=== PATIENT | female | born 1940 | race Hispanic/Latino ===

== ENCOUNTER 2017-12-17 17:51 | Emergency (ER) | payer MEDICARE, BC ==
[2017-12-17 17:52] VITALS: BMI 34.0
--- NOTE | 2017-12-17 18:40 | ED PDOC ---
Arrival/HPI - General Time Seen by Provider: 12/17/17 18:19 Historian: Patient - History of Present Illness Narrative History of Present Illness (Text): 12/17/17 18:35 A 77 year old female presents to the emergency department accompanied by for evaluation after mechanical fall prior to arrival. Patient reports while at home she tripped on a throw rug and fell forward onto her knees, left wrist and hit the left side of her forehead. Patient denies any other injuries, loss of consciousness, headache, dizziness, neck pain, back pain, nausea, vomiting, abdominal pain, chest pain, shortness of breath or any other complaints. Time/Duration: Prior to Arrival Context: Home, Tripped Past Medical History - Provider Review Nursing Documentation Reviewed: Yes - Cardiac Hx Cardiac Disorders: Yes Hx Hypertension: Yes - Pulmonary Hx Respiratory Disorders: No - Neurological Hx Neurological Disorder: No - HEENT Hx HEENT Disorder: No - Renal Hx Renal Disorder: No - Endocrine/Metabolic Hx Endocrine Disorders: Yes Hx Hypothyroidism: Yes - Hematological/Oncological Hx Blood Disorders: No - Integumentary Hx Dermatological Disorder: No - Musculoskeletal/Rheumatological Hx Musculoskeletal Disorders: No Hx Arthritis: No - Gastrointestinal Hx Gastrointestinal Disorders: No - Genitourinary/Gynecological Hx Genitourinary Disorders: No - Psychiatric Hx Psychophysiologic Disorder: No Hx Depression: No Hx Emotional Abuse: No Hx Physical Abuse: No Hx Substance Use: No - Surgical History Hx Appendectomy: Yes Hx Hysterectomy: Yes - Suicidal Assessment Feels Threatened In Home Enviroment: No Family/Social History - Physician Review Nursing Documentation Reviewed: Yes Family/Social History: No Known Family HX Smoking Status: Never Smoked Hx Alcohol Use: No Hx Substance Use: No Hx Substance Use Treatment: No Allergies/Home Meds Allergies/Adverse Reactions: Allergies tetanus and diphtheria toxoids [tetanus & diphtheria toxoids] Allergy (Verified 05/09/16 08:05) RASH Home Medications: Home Meds Medication Instructions Recorded Confirmed Atorvastatin Calcium [Lipitor] 20 mg PO DAILY 05/06/12 05/09/16 Levothyroxine [Synthroid] 1 tab PO DAILY 05/09/16 05/09/16 Nitrofurantoin Macrocrystals 100 mg PO BID 05/09/16 05/09/16 [Macrobid] Valsartan/Hydrochlorothiazide 1 tab PO DAILY 05/09/16 05/09/16 [Valsartan-Hctz 160-12.5 mg Tab] Review of Systems - Physician Review All systems were reviewed & negative as marked: Yes - Review of Systems Respiratory: absent: SOB Cardiovascular: absent: Chest Pain Gastrointestinal: absent: Abdominal Pain, Nausea, Vomiting Musculoskeletal: Other (bilateral knee pain, left wrist pain). absent: Back Pain, Neck Pain Skin: Other (abrasions to left forehead) Neurological: absent: Headache, Dizziness Physical Exam Vital Signs Temp Pulse Resp BP Pulse Ox 12/17/17 19:04 97.8 F 60 18 108/82 99 Appearance: Positive for: Well-Appearing, Non-Toxic, Comfortable Pain Distress: None Mental Status: Positive for: Alert and Oriented X 3 - Systems Exam Head: Present: Tenderness (to left side of face), Abrasion (multiple abrasion to left side of face) Pupils: Present: PERRL Extroacular Muscles: Present: EOMI Conjunctiva: Present: Normal Mouth: Present: Moist Mucous Membranes Neck: Present: Normal Range of Motion. No: MIDLINE TENDERNESS, Paraspinal Tenderness Respiratory/Chest: Present: Clear to Auscultation, Good Air Exchange. No: Respiratory Distress, Accessory Muscle Use Cardiovascular: Present: Regular Rate and Rhythm, Normal S1, S2. No: Murmurs Abdomen: Present: Normal Bowel Sounds. No: Tenderness, Distention, Peritoneal Signs Back: Present: Normal Inspection. No: Midline Tenderness, Paraspinal Tenderness Upper Extremity: Present: NORMAL PULSES, Tenderness (to left wrist), Neurovascularly Intact. No: Cyanosis, Edema, Normal ROM (Limited ROM to left wrist secondary to pain), Swelling, Erythema, Temperature Abnormalties Lower Extremity: Present: NORMAL PULSES, Normal ROM, Tenderness (to bilateral knees), Neurovascularly Intact. No: Edema, CALF TENDERNESS, Swelling, Temperature Abnormalties Neurological: Present: GCS=15, CN II-XII Intact, Speech Normal, Motor Func Grossly Intact, Normal Sensory Function, Normal Cerebellar Funct, Gait Normal Skin: Present: Warm, Dry, Normal Color. No: Rashes Psychiatric: Present: Alert, Oriented x 3, Normal Insight, Normal Concentration Medical Decision Making ED Course and Treatment: 12/17/17 18:35 Impression: A 77 year old female with left facial, left wrist, and bilateral knee pain after mechanical fall Differential Diagnosis included but are not limited to: Rule out fractures Plan: -- -- Tylenol -- Reassess and disposition Progress Notes: Patient refused to have a tetanus shot. She reports she experienced an allergic reaction to the vaccine when she was younger. Report Date: 12/17/17 21:13 EXAM: CT Head Without Intravenous Contrast Dictated and Authenticated by: Umu Herr MD IMPRESSION: No CT evidence of acute intracranial abnormality. Report Date: 12/17/17 21:17 EXAM: CT Maxillofacial Without Intravenous Contrast Dictated and Authenticated by: Umu Herr MD IMPRESSION: No acute fracture visualized. 12/17/17 21:45 Knee xray read and interpreted by me, show no acute fractures. Wrist xray read and interpreted by me, oblique view area of articular surface contains slight irregularity. On examination there is no tenderness over that area, no palpable tenderness over the snuffbox or tenderness with axial loading of the thumb. I have discussed the results and plan with the patient, who expresses understanding. Patient in agreement with plan to be discharged home. Patient is stable for discharge. Patient was instructed to follow up with orthopedist or return if symptoms worsen or new concerning symptoms arise. - RAD Interpretation Radiology Orders: 12/17/17 18:31 HEAD W/O CONTRAST [CT] Stat MAXILLOFACIAL W/O CONTRAST [CT] Stat KNEES BILATERAL [RAD] Stat WRIST, LEFT 3 VIEWS [RAD] Stat - Medication Orders Current Medication Orders: Discontinued Medications Acetaminophen (Tylenol 325mg Tab) 975 mg PO STAT STA Stop: 12/17/17 18:56 Last Admin: 12/17/17 19:21 Dose: 975 mg MAR Pain/Vitals Document 12/17/17 19:21 MS (Rec: 12/17/17 19:22 [place] [facility] [id number] Pain Reassessment Is This A Pain ReAssessment? No Sleep Is patient sleeping during reassessment? No Presence of Pain Presence of Pain Yes Pain Scale Used Pain Scale Used Numeric Location Pain Location Body Drug Safety Coordinator Description Constant Intensity 7 Scale Used Numeric - Scribe Statement The provider has reviewed the documentation as recorded by the Scribe Mena Yadav Provider Scribe Attestation: All medical record entries made by the Scribe were at my direction and personally dictated by me. I have reviewed the chart and agree that the record accurately reflects my personal performance of the history, physical exam, medical decision making, and the department course for this patient. I have also personally directed, reviewed, and agree with the discharge instructions and disposition. Disposition/Present on Arrival - Present on Arrival Any Indicators Present on Arrival: No History of DVT/PE: No History of Uncontrolled Diabetes: No Urinary Catheter: No History Surgical Site Infection Following: None - Disposition Have Diagnosis and Disposition been Completed?: Yes Diagnosis: Left wrist sprain, Fall, Facial contusion Disposition: HOME/ ROUTINE Disposition Time: 21:53 Patient Plan: Discharge Condition: GOOD Discharge Instructions (ExitCare): [place], Contusion (DC), Wrist Sprain (DC) Additional Instructions: Mrs Otero- Sorreinaldo this happened to you tonight. Return to us if any problems. Follow up with orthopedics regarding your wrist. Tylenol or motrin ok for pain. Ice packs for swelling. Best- Dr. Juan Cruz Referrals: Andi Barahona MD [Staff Provider] - Follow up with primary
[2017-12-17 19:05] VITALS: O2SAT 99
--- NOTE | 2017-12-17 21:13 | CT ---
EXAM: CT Head Without Intravenous Contrast CLINICAL HISTORY: 77 years old, female; Injury or trauma; Fall; Initial encounter; Blunt trauma (contusions or hematomas); Consciousness not specified TECHNIQUE: Axial computed tomography images of the head/brain without intravenous contrast. All CT scans at this facility use one or more dose reduction techniques, viz.: automated exposure control; ma/kV adjustment per patient size (including targeted exams where dose is matched to indication; i.e. head); or iterative reconstruction technique. Coronal and sagittal reformatted images were created and reviewed. COMPARISON: No relevant prior studies available. FINDINGS: Brain: No hemorrhage. No significant white matter disease. No edema. Ventricles: No hydrocephalus. Bones: Skull is intact. Sinuses: Mild maxillary sinus disease. No acute sinusitis. Mastoid air cells: No mastoid effusion. IMPRESSION: No CT evidence of acute intracranial abnormality.
--- NOTE | 2017-12-17 21:17 | CT ---
EXAM: CT Maxillofacial Without Intravenous Contrast CLINICAL HISTORY: 77 years old, female; Injury or trauma; Fall; Initial encounter; Blunt trauma (contusions or hematomas); Cheek bone and forehead and nose and maxilla; Bilateral; Additional info: Fall, zygomatic arch fracture on l? TECHNIQUE: Axial computed tomography images of the face without intravenous contrast. All CT scans at this facility use one or more dose reduction techniques, viz.: automated exposure control; ma/kV adjustment per patient size (including targeted exams where dose is matched to indication; i.e. head); or iterative reconstruction technique. Coronal and sagittal reformatted images were created and reviewed. COMPARISON: No relevant prior studies available. FINDINGS: Bones/joints: No acute fracture. Soft tissues: No significant abnormality appreciated on CT. Correlate clinically. Orbits: No acute abnormality as visualized. Sinuses: Mild maxillary sinus mucosal thickening. No air-fluid levels. IMPRESSION: No acute fracture visualized.
[2017-12-17 23:55] VITALS: BP 108/88; PULSE 70; RESP 16; TEMP 97
--- NOTE | 2017-12-18 08:26 | RAD ---
PROCEDURE: Bilateral Knee Radiographs. HISTORY: Fall COMPARISON: None. FINDINGS: BONES: Right Knee: No acute fracture. Proliferative hypertrophic changes emanating from the femoral condyle and tibial plateau regions. Left Knee: No acute fracture. Proliferative hypertrophic changes emanating from the femoral condyle and tibial plateau regions. JOINTS: Right Knee: Degenerative changes primarily affecting medial compartment and patellofemoral joint. Left knee: Degenerative changes primarily affecting medial compartment SOFT TISSUES: Right Knee: Soft tissue swelling adjacent to the medial femoral condyles region. Left Knee: Medial soft tissue swelling JOINT EFFUSION: Right Knee: None. Left Knee: None. OTHER FINDINGS: None. IMPRESSION: Soft tissue swelling without acute articular or osseous abnormality.
--- NOTE | 2017-12-18 08:27 | RAD ---
PROCEDURE: Left Wrist Radiographs. HISTORY: Fall COMPARISON: None. FINDINGS: BONES: Normal. No fracture. JOINTS: Osteoarthritic changes incompletely visualized SOFT TISSUES: Normal. OTHER FINDINGS: None. IMPRESSION: No acute findings related to/accounting for the clinical presentation. Additional benign and/or incidental findings described above.
== END 2017-12-17 21:50 | disposition home or self-care (01) ==
LOC: ED 17:51
DX: S63.502A Unspecified sprain of left wrist, initial encounter (principal); S00.83XA Contusion of other part of head, initial encounter; W01.0XXA Fall on same level from slipping, tripping and stumbling without subsequent striking against object, initial encounter; Y92.009 Unspecified place in unspecified non-institutional (private) residence as the place of occurrence of the external cause; I10 Essential (primary) hypertension; E03.9 Hypothyroidism, unspecified

== ENCOUNTER 2018-11-10 09:14 | Emergency (ER) | payer MEDICARE, BC ==
--- NOTE | 2018-11-10 09:35 | ED PDOC ---
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 anterior leg and lt. 1st great toe injury x 2 days. Pt. stated that she scraped her leg against a plastic pill bottle and injured the lt. foot 1st digit toe, no head/neck/back injury, no numbness or tingling, no head/neck/back/chest/abdomen injury, no night sweat, no other medical or psychological complaints. Past Medical History - Provider Review Nursing Documentation Reviewed: Yes - Cardiac Hx Cardiac Disorders: Yes Hx Hypertension: Yes - Pulmonary Hx Respiratory Disorders: No - Neurological Hx Neurological Disorder: No - HEENT Hx HEENT Disorder: No - Renal Hx Renal Disorder: No - Endocrine/Metabolic Hx Endocrine Disorders: Yes Hx Hypothyroidism: Yes - Hematological/Oncological Hx Blood Disorders: No - Integumentary Hx Dermatological Disorder: No - Musculoskeletal/Rheumatological Hx Musculoskeletal Disorders: No Hx Arthritis: No - Gastrointestinal Hx Gastrointestinal Disorders: No - Genitourinary/Gynecological Hx Genitourinary Disorders: No - Psychiatric Hx Psychophysiologic Disorder: No Hx Depression: No Hx Emotional Abuse: No Hx Physical Abuse: No Hx Substance Use: No - Surgical History Hx Appendectomy: Yes Hx Hysterectomy: Yes - Suicidal Assessment Feels Threatened In Home Enviroment: No Family/Social History - Physician Review Nursing Documentation Reviewed: Yes Family/Social History: Unknown Family HX Smoking Status: Never Smoked Hx Alcohol Use: No Hx Substance Use: No Hx Substance Use Treatment: No Allergies/Home Meds Allergies/Adverse Reactions: Allergies tetanus and diphtheria toxoids [tetanus & diphtheria toxoids] Allergy (Verified 05/09/16 08:05) RASH Home Medications: Home Meds Medication Instructions Recorded Confirmed Atorvastatin Calcium [Lipitor] 20 mg PO DAILY 05/06/12 05/09/16 Levothyroxine [Synthroid] 1 tab PO DAILY 05/09/16 05/09/16 Nitrofurantoin Macrocrystals 100 mg PO BID 05/09/16 05/09/16 [Macrobid] Valsartan/Hydrochlorothiazide 1 tab PO DAILY 05/09/16 05/09/16 [Valsartan-Hctz 160-12.5 mg Tab] Review of Systems - Review of Systems Constitutional: absent: Fatigue, Fevers Eyes: absent: Vision Changes ENT: absent: Hearing Changes Respiratory: absent: SOB, Cough, Sputum Cardiovascular: absent: Chest Pain Gastrointestinal: absent: Abdominal Pain, Nausea, Vomiting Musculoskeletal: Arthralgias. absent: Back Pain, Neck Pain, Joint Swelling, Myalgias Skin: absent: Rash, Pruritis, Skin Lesions, Laceration, Abscess, Ulcer, Cellulitis, Other (abrasion) Neurological: absent: Headache Psychiatric: absent: Anxiety, Depression, Suicidal Ideation Physical Exam Vital Signs Reviewed: Yes Temperature: Afebrile Blood Pressure: Normal Pulse: Regular Respiratory Rate: Normal Appearance: Positive for: Well-Appearing, Non-Toxic, Comfortable Pain Distress: Mild Mental Status: Positive for: Alert and Oriented X 3 - Systems Exam Head: Present: Atraumatic, Normocephalic Pupils: Present: PERRL Extroacular Muscles: Present: EOMI Conjunctiva: Present: Normal Mouth: Present: Moist Mucous Membranes Nose (External): Present: Atraumatic. No: Abrasion, Contusion, Laceration, Lesions, Other Nose (Internal): Present: Normal Inspection, No Active Bleeding. No: Rhinorrhea, Septal Hematoma, Epistaxis Neck: Present: Normal Range of Motion Respiratory/Chest: Present: Clear to Auscultation, Good Air Exchange. No: Respiratory Distress, Accessory Muscle Use Cardiovascular: Present: Regular Rate and Rhythm, Normal S1, S2. No: Murmurs Abdomen: No: Tenderness, Distention, Peritoneal Signs, Rebound, Guarding Back: Present: Normal Inspection. No: CVA Tenderness, Midline Tenderness, Paraspinal Tenderness, Pain with Leg Raise, Decubitus Ulcer Upper Extremity: Present: Normal Inspection. No: Cyanosis, Edema Lower Extremity: Present: Normal Inspection, Other (LLE: visible triangular abrasion approx. 3cm in total length with no laceration gap, mild hematoma surrounding, +ttp on the 1st digit toe with no swelling and no skin injury with no nail injury, no signs of compartment syndrome, FROM without limitation, sensation intact, motor 5/5, +DPPT pulses, capillary refill< 2 seconds, neurovascular intact. ). No: Edema Neurological: Present: GCS=15, CN II-XII Intact, Speech Normal Skin: Present: Warm, Dry, Normal Color. No: Rashes Psychiatric: Present: Alert, Oriented x 3, Normal Insight, Normal Concentration Medical Decision Making ED Course and Treatment: 11/10/18 09:40 -Xrays -wound irrigate with saline, clean with betadine, bacitracin/gauze/edvin wrap/cane -I explained to the patient that for her injury that she should receive tetanus update but the patient declined as she had anaphylatic reaction in the past, stated that she had skin abrasion/laceration in the past 50 years which she never had tetanus shot, risks and benefits explained but the patient still declined tetanus. I will refer her to infectious disease 11/10/18 10:59 -Lt. tibia/fibula xray: ER wet read: no fracture or dislocation, mild swelling to anterior mid tibial region. -Lt. foot 1st digit toe xray: ER wet read: no fracture or dislocation, +DJD noted. -Pt. feels much better, advised to follow up with the pmd/podiatry/ID -Discharge home with tylenol, bacitracin oinment, follow up with your own pmd and ID/[employer] food & cooking/orthopedic within 2 days, return to the er for any new or worsening signs or symptoms. - RAD Interpretation Radiology Orders: -Lt. tibia/fibula xray: Date of service: 11/10/2018 PROCEDURE: Radiographs of the left tibia and fibula. HISTORY: fall, pain COMPARISON: None available. TECHNIQUE: Frontal and lateral views obtained. FINDINGS: BONES: No fracture or destructive lesion. JOINT SPACES: Unremarkable. OTHER FINDINGS: None. IMPRESSION: Unremarkable radiographs of the left tibia and fibula. ----- -Lt. foot 1st digit toe xray: Date of service: 11/10/2018 PROCEDURE: Left Foot and great toe radiographs. HISTORY: lt. great toe injury from tripping COMPARISON: None. FINDINGS: BONES: Normal. No fracture. JOINTS: Normal. SOFT TISSUES: Normal. OTHER FINDINGS: None. IMPRESSION: No evidence of fracture School Principal: Radiologist - PA / [employer] / Resident Statement / has reviewed & agrees with the documentation as recorded. Disposition/Present on Arrival - Present on Arrival Any Indicators Present on Arrival: No History of DVT/PE: No History of Uncontrolled Diabetes: No Urinary Catheter: No History of Decub. Ulcer: No History Surgical Site Infection Following: None - Disposition Have Diagnosis and Disposition been Completed?: Yes Diagnosis: Abrasion, Contusion Disposition: HOME/ ROUTINE Disposition Time: 09:41 Patient Plan: Discharge Patient Problems: Current Active Problems Problem Status Onset Abrasion Acute Contusion Acute Condition: IMPROVED Additional Instructions: -Discharge home with tylenol, bacitracin oinment, follow up with your own pmd and ID/svp digital sales food & cooking/orthopedic within 2 days, return to the er for any new or worsening signs or symptoms. Prescriptions: Acetaminophen [Tylenol] 2 cap PO QID PRN #30 capsule PRN Reason: Other Bacitracin Ointment [Bacitracin] 1 appful TOP BID #15 g Referrals: Avelino Dougherty MD [Primary Care Provider] - Follow up with primary Tr Mae DPM [Staff Provider] - Follow up with primary Devan Terrell MD [Staff Provider] - Follow up with primary Kaden Green DO [Staff Provider] - Follow up with primary Forms: WORK NOTE
[2018-11-10 09:36] VITALS: BMI 32.9
[2018-11-10] MEDS ORDERED: Bacitracin 500 Units/gm Oint Foilpak UD TOP ONE (09:42)
--- NOTE | 2018-11-10 11:08 | RAD ---
Date of service: 11/10/2018 PROCEDURE: Radiographs of the left tibia and fibula. HISTORY: fall, pain COMPARISON: None available. TECHNIQUE: Frontal and lateral views obtained. FINDINGS: BONES: No fracture or destructive lesion. JOINT SPACES: Unremarkable. OTHER FINDINGS: None. IMPRESSION: Unremarkable radiographs of the left tibia and fibula.
--- NOTE | 2018-11-10 11:10 | RAD ---
Date of service: 11/10/2018 PROCEDURE: Left Foot and great toe radiographs. HISTORY: lt. great toe injury from tripping COMPARISON: None. FINDINGS: BONES: Normal. No fracture. JOINTS: Normal. SOFT TISSUES: Normal. OTHER FINDINGS: None. IMPRESSION: No evidence of fracture
[2018-11-10 11:11] VITALS: BP 115/72; PULSE 80; RESP 16; TEMP 97.7; O2SAT 100
== END 2018-11-10 11:21 | disposition home or self-care (01) ==
LOC: ED 09:14
DX: S80.812A Abrasion, left lower leg, initial encounter (principal); S90.112A Contusion of left great toe without damage to nail, initial encounter; W22.8XXA Striking against or struck by other objects, initial encounter

== ENCOUNTER 2018-12-03 16:43 | Inpatient (IN) | payer MEDICARE, BC ==
--- NOTE | 2018-12-03 17:03 | ED PDOC ---
Arrival/HPI - General Chief Complaint: Palpitations Time Seen by Provider: 12/03/18 16:47 Historian: Patient - History of Present Illness Narrative History of Present Illness (Text): 12/03/18 17:01 A 78 year old female, whose past medical history includes bronchitis, on CPAP, hyperthyroid, low thyroid, hyperlipidemia, hypertension, and a functional heart murmur, presents to the emergency department complaining of shortness of breath since 3 days ago. Patient reports associated intermittent headache but reports no current pain. Patient notes she called her primary care doctor with her symptoms and was advised to come to the ER for an evaluation. Patient states her shortness of breath increases as her anxiety increases. Patient notes she had seen her certified orthoptist 3 weeks ago to try to lower the pressure on her CPAP. Pat ngoc denies any sick contact, fever, chills, or any other complaints. PMD: Dr. Dougherty Time/Duration: < week (3 days) Symptom Onset: Gradual Symptom Course: Unchanged Activities at Onset: Light Context: Home Past Medical History - Provider Review Nursing Documentation Reviewed: Yes - Infectious Disease Hx of Infectious Diseases: None - Cardiac Hx Cardiac Disorders: Yes Hx Hypertension: Yes - Pulmonary Hx Respiratory Disorders: No - Neurological Hx Neurological Disorder: No - HEENT Hx HEENT Disorder: No - Renal Hx Renal Disorder: No - Endocrine/Metabolic Hx Endocrine Disorders: Yes Hx Hypothyroidism: Yes - Hematological/Oncological Hx Blood Disorders: No - Integumentary Hx Dermatological Disorder: No - Musculoskeletal/Rheumatological Hx Musculoskeletal Disorders: No Hx Arthritis: No - Gastrointestinal Hx Gastrointestinal Disorders: No - Genitourinary/Gynecological Hx Genitourinary Disorders: No - Psychiatric Hx Psychophysiologic Disorder: No Hx Depression: No Hx Emotional Abuse: No Hx Physical Abuse: No Hx Substance Use: No - Surgical History Hx Appendectomy: Yes Hx Hysterectomy: Yes - Anesthesia Hx Anesthesia: Yes Hx Anesthesia Reactions: No Hx Malignant Hyperthermia: No - Suicidal Assessment Feels Threatened In Home Enviroment: No Family/Social History - Physician Review Nursing Documentation Reviewed: Yes Family/Social History: No Known Family HX Smoking Status: Never Smoked Hx Alcohol Use: No Hx Substance Use: No Hx Substance Use Treatment: No Allergies/Home Meds Allergies/Adverse Reactions: Allergies bicalutamide [From Casodex] Allergy (Verified 12/03/18 16:49) RASH butenafine [From Mentax] Allergy (Verified 12/03/18 16:49) RASH tetanus and diphtheria toxoids [tetanus & diphtheria toxoids] Allergy (Verified 12/03/18 16:47) RASH Home Medications: Home Meds Medication Instructions Recorded Confirmed Atorvastatin Calcium [Lipitor] 20 mg PO DAILY 05/06/12 05/09/16 Levothyroxine [Synthroid] 1 tab PO DAILY 05/09/16 05/09/16 Nitrofurantoin Macrocrystals 100 mg PO BID 05/09/16 05/09/16 [Macrobid] Valsartan/Hydrochlorothiazide 1 tab PO DAILY 05/09/16 05/09/16 [Valsartan-Hctz 160-12.5 mg Tab] Review of Systems - Physician Review All systems were reviewed & negative as marked: Yes - Review of Systems Constitutional: absent: Fevers, Other (chills) Respiratory: SOB Neurological: Headache Physical Exam - Physical Exam Narrative Physical Exam (Text): 12/03/18 17:02 Gen: VS reviewed, alert, well developed, well nourished, nontoxic, mild distress. ENT: normal pharynx. Eye: EOMI, PERRL. Neck: no JVD, supple, no adenopathy. CV: irregularly irregular rhythm, no rubs, no murmur, no gallops, S1, S2, pulses equal and strong. Pulm: no distress, clear to auscultation, no wheeze, no rhonchi, breath sounds equal, no rales. Abd: soft, nontender, no guarding, no rebound, no rigidity, normal bowel sounds. Ext: no edema. Skin: good color, no rash, no cyanosis. Psych: responds appropriately to questions, normal affect. Neuro: oriented x 3, CN2-12 intact grossly, motor intact, sensation intact. Vital Signs Reviewed: Yes Vital Signs Temp Pulse Resp BP Pulse Ox 12/03/18 16:59 97.8 F 12/03/18 16:53 107 H 18 136/104 H 99 12/03/18 16:51 101 H 18 157/57 H 98 Temperature: Afebrile Blood Pressure: Hypertensive Pulse: Tachycardic Respiratory Rate: Normal Mental Status: Positive for: Alert and Oriented X 3 Medical Decision Making ED Course and Treatment: 03/15/19 17:03 Impression: 78 year old female presenting to the emergency room complaining of shortness of breath. Plan: -- EKG -- TSH -- Heparin -- Reassess and disposition Prior Visits: Notes and results from previous visits were reviewed. Progress Notes: 12/03/18 18:13 patient seen for dyspnea on exertion, found to have new onset atrial fibrillation, [id number] score = 4, has bled score =1, there are no identifiable contraindications to anticoagulation. will start heparin 12/03/18 18:[address] rausch to tele, patient to be admitted for new onset afib, anticoagulation, cardiology consult - RAD Interpretation Radiology Orders: 12/03/18 16:51 CHEST PORTABLE [RAD] Stat - EKG Interpretation EKG Interpretation (Text): 12/03/18 1652: atrial fibrillation at 100 bpm, nml qrs, nml axis, no acute sttw abn Interpreted by ED Physician: Yes - Scribe Statement The provider has reviewed the documentation as recorded by the Uziel Lange All medical record entries made by the Mirtaibbarry were at my direction and personal ly dictated by me. I have reviewed the chart and agree that the record accurately reflects my personal performance of the history, physical exam, medical decision making, and the department course for this patient. I have also personally directed, reviewed, and agree with the discharge instructions and disposition. Disposition/Present on Arrival - Present on Arrival Any Indicators Present on Arrival: No History of DVT/PE: No History of Uncontrolled Diabetes: No Urinary Catheter: No History of Decub. Ulcer: No History Surgical Site Infection Following: None - Disposition Have Diagnosis and Disposition been Completed?: Yes Diagnosis: Atrial fibrillation with controlled ventricular response Disposition: HOSPITALIZED Disposition Time: 18:17 Patient Plan: Admission Patient Problems: Current Active Problems Problem Status Onset Atrial fibrillation with controlled ventricular response Acute Condition: STABLE Referrals: Avelino Dougherty MD [Primary Care Provider] - Follow up with primary Forms: [employer] ([place])
[2018-12-03 17:29] LABS: ALB/GLOB RATIO 1.4 (1.1-1.8); ALBUMIN 4.4 g/dL (3.0-4.8); AST/SGOT 23 U/L (14-36); BLOOD UREA NITROGEN 21 mg/dL (7-21); CALCIUM 10.2 mg/dL (8.4-10.5); GFR NON-AFRICAN AMERICAN > 60
[2018-12-03 17:38] LABS: ALT/SGPT < 6 U/L (7-56)
[2018-12-03 17:41] LABS: B-TYPE NATRIURETIC PEPTIDE 350 pg/mL (0-450); TROPONIN I < 0.01 ng/mL
[2018-12-03 17:42] LABS: BASO # 0.04 K/mm3 (0.0-2.0); BASO % 0.6 % (0.0-3.0); EOS # 0.2 (0.0-0.7); EOS % 2.9 % (1.5-5.0); LYMPH % 29.6 % (22.0-35.0); MEAN CELL VOLUME 88.9 fl (80.0-105.0); MEAN CORPUSCULAR HEMOGLOBIN 29.3 pg (25.0-35.0); MEAN PLATELET VOLUME 11.2 fl (7.0-11.0); MONO # 0.8 (0.1-0.6); RBC 5.12 10^6/uL (3.5-6.1); RED CELL DISTRIBUTION WIDTH 12.6 % (11.5-14.5); WHITE BLOOD COUNT 6.8 10^3/uL (4.5-11.0)
[2018-12-03 17:45] LABS: INR 1.09; PARTIAL THROMBOPLASTIN TIME 30.8 Seconds (26.9-38.3); PROTHROMBIN TIME 12.1 SECONDS (9.4-12.5)
[2018-12-03] MEDS ORDERED: Heparin25000 units/250ml 1/2NS 25,000 UNITS/250 ML BAG IV PRN (18:21)
--- NOTE | 2018-12-03 18:23 | RAD ---
Date of service: 12/03/2018 HISTORY: Chest pain. COMPARISON: 11/23/2015. FINDINGS: LUNGS: No active pulmonary disease. PLEURA: No significant pleural effusion identified, no pneumothorax apparent. CARDIOVASCULAR: No atherosclerotic calcification present Normal. OSSEOUS STRUCTURES: No significant abnormalities. VISUALIZED UPPER ABDOMEN: Normal. OTHER FINDINGS: None. IMPRESSION: No active disease. No significant interval change compared to the prior examination(s).
[2018-12-03] MEDS ORDERED: Bacitracin Ointment 30 GM TUBE TOP STA (18:39)
[2018-12-03] MEDS ORDERED: Bacitracin 500 Units/gm Oint Foilpak UD TOP STA (18:42)
--- NOTE | 2018-12-03 18:44 | CARD ---
APPROVED REPORT Date of service: 12/03/2018 EKG Measurement Heart [id number] <Conclusion> Atrial fibrillation Cannot rule out Anterior infarct, age undetermined Abnormal ECG
[2018-12-03] MEDS ORDERED: Heparin 25,000units in 1/2NS 250 ML BAG IV PRN ×2 (19:00→19:54)
--- NOTE | 2018-12-04 04:25 | CP.PCM.PN ---
Subjective - Date & Time of Evaluation Date of Evaluation: 12/04/18 Time of Evaluation: 04:20 - Subjective Subjective: S:I was asked to co-sign order of CPAP. Patient requested to allow her to use CPAP which she uses at home. Seen at bedside. Has no other complaints now. Pertinent medical record was reviewed. O:VSS. Not in acute distress. LUNGS:Normal breathing pattern. A:Dyspnea. Atrial fibrillation. P:May use CPAP. Objective - Vital Signs/Intake and Output Vital Signs (last 24 hours): Temp Pulse Resp BP Pulse Ox 97.9 F 80 20 110/71 96 12/04/18 00:01 12/04/18 02:00 12/04/18 00:01 12/04/18 00:01 12/04/18 00:01 Intake and Output: 12/03/18 12/04/18 18:59 06:59 Intake Total 100 Balance 100 - Medications Medications: Current Medications Atorvastatin Calcium (Lipitor) 20 mg PO DAILY HARRY Hydrochlorothiazide (Microzide) 12.5 mg PO DAILY HARRY Heparin Sodium/Sodium Chloride (Heparin 84888 Units/250ml 1/2 Normal Saline) 25,000 units in 250 mls @ 14.762 mls/hr IV .[id number] PRN; Protocol PRN Reason: ADJUST RATE PER PROTOCOL Last Titration: 12/04/18 03:30 Dose: 0 units/kg/hr, 0 mls/hr Levothyroxine Sodium (Synthroid) 100 mcg PO 0600 HARRY Losartan Potassium (Cozaar) 100 mg PO DAILY HARRY - Labs Labs: 12/03/18 17:08 12/03/18 17:08 PT 12.1 SECONDS (9.4-12.5) 12/03/18 17:08 INR 1.09 12/03/18 17:08 APTT > 400.0 Seconds (26.9-38.3) H* 12/04/18 02:00
[2018-12-04] MEDS ORDERED: Levothyroxine 100 MCG TAB PO SCH (06:00)
[2018-12-04] MEDS ORDERED: Levothyroxine 25 MCG TAB PO ONE (06:18)
--- NOTE | 2018-12-04 08:21 | CP.PCM.HP ---
<Pat Doyle - Last Filed: 12/04/18 09:12> History of Present Illness - History of Present Illness History of Present Illness: IM resident H&P note for Dr. Gonzales's service CC: SOB for 3 days Patient is a 78 y/o female with PMHx of Bronchitis, sleep apnea on cpap, knee OA, hypothyroidism, hyperlipidemia, hypertension, and heart murmur presenting with shortness of breath for 3 days. Patient states the SOB was mostly exertional, along with intermittent headache. Denies cough, or rhinorrhea. Denies chest pain, denies fever or chills. No sick contacts, no recent travel and no pets. Admits to palpitation. This morning, patient states she's feeling better. Patient is able to ambulate to the restroom without significant shortness of breath. In the ED, patient was found to have atrial fibrillation, thus patient was admitted for management. PMHx: Bronchitis, sleep apnea on cpap, hypothyroidism, hyperlipidemia, Jakub knee OA, hypertension, and heart murmur PSHx: carpal tunnel surgery, Total Hysterectomy and Bilateral Salpingo- Oophorectomy. FMHx: mom had atrial fibrillation, sister with metastatic uterine cancer. Social: former tobacco, denies alcohol and illicit drug use. 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 Home medications: as per chart Allergy: bicalutamide, butenafine, tdap Present on Admission - Present on Admission Any Indicators Present on Admission: No History of DVT/PE: No History of Uncontrolled Diabetes: No Urinary Catheter: No Decubitus Ulcer Present: No History Surgical Site Infection Following: None Review of Systems - Constitutional Constitutional: Sleep Apnea. absent: Chills, Fatigue, Fever, Headache, Lethargy, Night Sweats - EENT Eyes: absent: Blurred Vision Ears: absent: Disequilibrium, Dizziness Nose/Mouth/Throat: absent: Epistaxis, Nasal Congestion, Nasal Discharge, Sore Throat - Cardiovascular Cardiovascular: Dyspnea, Dyspnea on Exertion, Irregular Heart Rhythm, Palpitations, Rapid Heart Rate. absent: Chest Pain, Chest Pain at Rest, Chest Pain with Activity, Claudication, Diaphoresis, Edema, Lightheadedness, Paroxysmal Nocturnal Dyspnea, Slow Heart Rate, Syncope - Respiratory Respiratory: Dyspnea, Dyspnea on Exertion. absent: Cough, Hemoptysis, Wheezing, Snoring, Stridor, Pain on Inspiration, Chest Congestion, Excessive Mucous Production, Pain with Coughing - Gastrointestinal Gastrointestinal: absent: Abdominal Pain, Belching, Bloating, Constipation, Diarrhea, Dyspepsia, Dysphagia, Early Satiety, Nausea, Vomiting - Genitourinary Genitourinary: absent: Dysuria, Pyuria - Musculoskeletal Musculoskeletal: Other (jakub knee OA). absent: Back Pain, Deformity, Numbness - Integumentary Integumentary: absent: Wounds - Neurological Neurological: absent: Dizziness, Syncope, Tingling, Tremor, Vertigo, Weakness - Psychiatric Psychiatric: Anxiety. absent: Confusion, Depression - Endocrine Endocrine: Palpitations. absent: Fatigue, Polydipsia, Polyphagia, Polyuria - Hematologic/Lymphatic Hematologic: absent: Easy Bleeding, Easy Bruising Past Patient History - Infectious Disease Hx of Infectious Diseases: None - Tetanus Immunizations Tetanus Immunization: Unknown - Past Medical History & Family History Past Medical History?: Yes - Past Social History Smoking Status: Former Smoker Alcohol: None Drugs: Denies Home Situation {Lives}: With Family - CARDIAC Hx Cardiac Disorders: Yes Hx Cardia Arrhythmia: Yes (new onset afib) Hx Hypercholesterolemia: Yes Hx Hypertension: Yes - PULMONARY Hx Respiratory Disorders: Yes Hx Bronchitis: Yes (uses cpap at night) - NEUROLOGICAL Hx Neurological Disorder: No - HEENT Hx HEENT Problems: No - RENAL Hx Chronic Kidney Disease: No - ENDOCRINE/METABOLIC Hx Endocrine Disorders: Yes Hx Hypothyroidism: Yes - HEMATOLOGICAL/ONCOLOGICAL Hx Blood Disorders: No - INTEGUMENTARY Hx Dermatological Problems: No - MUSCULOSKELETAL/RHEUMATOLOGICAL Hx Musculoskeletal Disorders: No Hx Falls: No - GASTROINTESTINAL Hx Gastrointestinal Disorders: No - GENITOURINARY/GYNECOLOGICAL Hx Genitourinary Disorders: No - PSYCHIATRIC Hx Psychophysiologic Disorder: No Hx Substance Use: No - SURGICAL HISTORY Hx Surgeries: Yes Hx Appendectomy: Yes Hx Hysterectomy: Yes - ANESTHESIA Hx Anesthesia: Yes Hx Anesthesia Reactions: No Hx Malignant Hyperthermia: No Meds Allergies/Adverse Reactions: Allergies Allergy/AdvReac Type Severity Reaction Status Date / Time bicalutamide [From Casodex] Allergy RASH Verified 12/03/18 16:49 butenafine [From Mentax] Allergy RASH Verified 12/03/18 16:49 tetanus and diphtheria Allergy RASH Verified 12/03/18 16:47 toxoids [tetanus & diphtheria toxoids] Physical Exam - Constitutional Appears: No Acute Distress - Head Exam Head Exam: ATRAUMATIC, NORMAL INSPECTION, NORMOCEPHALIC - Eye Exam Eye Exam: EOMI, Normal appearance, PERRL. absent: Scleral icterus Pupil Exam: NORMAL ACCOMODATION - ENT Exam ENT Exam: Mucous Membranes Moist - Neck Exam Neck exam: Positive for: Normal Inspection - Respiratory Exam Respiratory Exam: Clear to Auscultation Bilateral, NORMAL BREATHING PATTERN. absent: Rales, Rhonchi, Wheezes, Respiratory Distress, Stridor - Cardiovascular Exam Cardiovascular Exam: Irregular Rhythm, +S1, +S2. absent: Bradycardia, Tachycard ia, Diastolic murmur, Gallop, JVD, RRR, Rubs - GI/Abdominal Exam GI & Abdominal Exam: Normal Bowel Sounds, Soft. absent: Distended, Firm, Guarding, Rebound, Rigid, Tenderness - Extremities Exam Extremities exam: Positive for: normal inspection. Negative for: pedal edema, tenderness - Back Exam Back exam: NORMAL INSPECTION. absent: tenderness - Neurological Exam Neurological exam: Alert, Oriented x3 - Psychiatric Exam Psychiatric exam: Normal Affect, Normal Mood - Skin Skin Exam: Dry, Intact, Normal Color, Warm Results - Vital Signs Recent Vital Signs: Last Vital Signs Temp 97.7 F 12/04/18 05:51 Pulse 85 12/04/18 05:51 Resp 18 12/04/18 05:51 BP 110/77 12/04/18 05:51 Pulse Ox 95 12/04/18 05:51 - Labs Result Diagrams: 12/03/18 17:08 12/03/18 17:08 Labs: Laboratory Results - last 24 hr 12/03/18 12/03/18 12/03/18 17:08 17:08 17:08 WBC 6.8 RBC 5.12 Hgb 15.0 Hct 45.5 MCV 88.9 MCH 29.3 MCHC 33.0 RDW 12.6 Plt Count 195 MPV 11.2 H Neut % (Auto) 55.9 Lymph % (Auto) 29.6 Robertson % (Auto) 11.0 H Eos % (Auto) 2.9 Baso % (Auto) 0.6 Lymph # (Auto) 2.0 Robertson # (Auto) 0.8 H Eos # (Auto) 0.2 Baso # (Auto) 0.04 Absolute Neuts (auto) 3.79 PT 12.1 INR 1.09 APTT 30.8 D-Dimer, Quantitative Sodium 140 Potassium 3.9 Chloride 103 Carbon Dioxide 28 Anion Gap 13 BUN 21 Creatinine 0.6 L Est GFR ( Amer) > 60 Est GFR (Non-Af Amer) > 60 Random Glucose 109 Calcium 10.2 Magnesium 1.8 Total Bilirubin 0.8 AST 23 ALT < 6 L Alkaline Phosphatase 58 Troponin I < 0.01 NT-Pro-B Natriuret Pep 350 Total Protein 7.6 Albumin 4.4 Globulin 3.2 Albumin/Globulin Ratio 1.4 TSH 3rd Generation 12/03/18 12/03/18 12/04/18 17:08 17:30 02:00 WBC RBC Hgb Hct MCV MCH MCHC RDW Plt Count MPV Neut % (Auto) Lymph % (Auto) Robertson % (Auto) Eos % (Auto) Baso % (Auto) Lymph # (Auto) Robertson # (Auto) Eos # (Auto) Baso # (Auto) Absolute Neuts (auto) PT INR APTT > 400.0 H* D-Dimer, Quantitative < 200 Sodium Potassium Chloride Carbon Dioxide Anion Gap BUN Creatinine Est GFR ( Amer) Est GFR (Non-Af Amer) Random Glucose Calcium Magnesium Total Bilirubin AST ALT Alkaline Phosphatase Troponin I NT-Pro-B Natriuret Pep Total Protein Albumin Globulin Albumin/Globulin Ratio TSH 3rd Generation 1.10 - EKG Data EKG Interpreted by: Myself (atrial fibrillation, non specific ST/T wave changes on lead V1.) Assessment & Plan - Assessment and Plan (Free Text) Assessment: 1- Shortness of breath likely 2nd to atrial fibrillation, r/o ischemic heart, less likely chf, and less likely infectious etiology 2- Atrial fibrillation- rate controlled, on heparin drip 3- h/o bronchitis 4- h/o sleep apnea 5- Hypothyroidism 6- hyperlipidemia 7- hypertension 8- H/o Heart murmur Plan: Patient is admitted on tele for management of the atrial fibrillation. Patient is hemodynamically stable. Troponin x1 negative, will trend. TSH was normal. Chest x-ray is normal. normal d-dimer, electrolytes and no leukocytosis. [id number] of 4 and HASbled score of 1, thus patient is on heparin drip, pending echo to determine jail anticoagulation. Primer Charger is consulted. Will continue with Lipitor for hld. On hydrochlorothiazide and losartan for htn. Resume synthroid for hypothyroidism. On heart healthy diet. Patient see, examined and case discussed with Dr. Gonzales. - Date & Time Date: 12/04/18 Time: 09:00 <Usman Gonzales - Last Filed: 12/04/18 19:05> Results - Vital Signs Recent Vital Signs: Last Vital Signs Temp 97.9 F 12/04/18 12:00 Pulse 95 H 12/04/18 12:00 Resp 18 12/04/18 12:00 BP 113/74 12/04/18 12:00 Pulse Ox 95 12/04/18 05:51 - Labs Result Diagrams: 12/03/18 17:08 12/03/18 17:08 Labs: Laboratory Results - last 24 hr 12/03/18 12/04/18 12/04/18 17:30 02:00 10:20 APTT > 400.0 H* > 400.0 H* Troponin I TSH 3rd Generation 1.10 12/04/18 10:20 APTT Troponin I < 0.01 TSH 3rd Generation Assessment & Plan - Assessment and Plan (Free Text) Plan: Pt was seen and examined. I agree with the note of the medical billing and coding instructor. I was involved in the plan of care.
[2018-12-04] MEDS ORDERED: Levothyroxine 125 MCG TAB PO SCH (10:00)
[2018-12-04] MEDS ORDERED: Non Formulary Medication (Valsartan/Hydrochlorothiazide [Valsartan-Hctz 160-12.5 Mg Tab] 1 PO SCH (10:00)
[2018-12-04] MEDS: Metoprolol Succinate 50 mg XL Tab PO SCH (10:18)
--- NOTE | 2018-12-04 12:32 | CON ---
DATE: 12/04/2018 REQUESTING PHYSICIAN: Dr. Gonzales REASON FOR CONSULTATION: Atrial fibrillation. HISTORY: This is a 78-year-old woman with a history of hypertension, hyperlipidemia, and COPD, who presents to emergency room with worsening dyspnea over the past several days. She also noted palpitations. In the emergency room, she was noted to be in atrial fibrillation and admitted for evaluation and management. She denies any prior cardiac history. She has no prior history of atrial fibrillation to the best of her knowledge. She is followed by Dr. Dougherty. She does have sleep apnea for which she uses nocturnal CPAP. She has a history of hypothyroidism as well. She has undergone prior carpal tunnel surgery as well as complete hysterectomy and bilateral salpingo-oophorectomy. CURRENT MEDICATIONS AT HOME: Included Lipitor, Macrobid, Synthroid, valsartan HCT 160/12.5 mg daily. ALLERGIES: SHE HAS HAD A REACTION TO DPT VACCINE IN THE PAST WELL BICALUTAMIDE AND BUTENAFINE. SOCIAL HISTORY: She is a former smoker, having quit many years ago. She denies alcohol intake. She is a retired logistics officer. FAMILY HISTORY: Her mother recently at the age of 99 and also had atrial fibrillation. Her father from age-related illness. One sister has metastatic uterine cancer. REVIEW OF SYSTEMS: A 10-point review of systems is otherwise unremarkable. PHYSICAL EXAMINATION: GENERAL: She is an elderly woman who appears comfortable at the present time. VITAL SIGNS: Her blood pressure is 110/76 with a pulse of 90, in atrial fibrillation, respirations 14. She is afebrile. HEENT: Normocephalic, atraumatic. NECK: Supple. No JVD is noted. CHEST: Clear to auscultation and percussion. HEART: Reveals the PMI displaced laterally with a soft systolic murmur at the left sternal border. Rhythm is irregularly irregular. ABDOMEN: Soft and nontender with normoactive bowel sounds. EXTREMITIES: No clubbing, cyanosis, or edema. SKIN: Warm and dry. PSYCHIATRIC: Normal mood and affect. NEUROLOGIC: Alert and oriented x3. No gross motor or sensory deficits notable. DIAGNOSTIC DATA: White count is 6.8, hemoglobin and hematocrit of 15 and 45.5 with platelet count of 195,000. PT and PTT of 12.1 and 30.8. She was placed on IV heparin and the PTT is greater than 400. Potassium is 3.9. BUN and creatinine are 21 and 0.6. Two sets cardiac enzymes were negative. BNP is 350. TSH is 1.1. Chest x-ray reveals normal cardiac silhouette with clear lung elder. Electrocardiogram reveals atrial fibrillation with moderate ventricular rate, prior anterior wall myocardial infarction pattern cannot be excluded. IMPRESSION: 1. Atrial fibrillation, appears to be of fairly recent onset. Likely secondary to hypertensive heart disease. 2. History of obstructive sleep apnea, maintained on nocturnal CPAP. 3. Rest of problems as noted. RECOMMENDATIONS: 1. She has no obvious contraindications to anticoagulant therapy, and given her persistent atrial fibrillation, initiation of this would be appropriate. She was started on Eliquis 5 mg twice daily. Low-dose metoprolol XL 50 mg daily will be added for rate control therapy at the present time. An echocardiogram will be obtained to assess her left ventricular size and function as well as to exclude any other significant valvular abnormalities. 2. An eventual outpatient stress test is recommended. 3. The implications of atrial fibrillation with respect to the need for anticoagulant therapy to reduce her thromboembolic risk was discussed with her as well as the potential for bleeding complications with anticoagulant therapy. Discussion was also had regarding the option of rate control therapy versus attempts at rhythm control, this can be addressed further at a later date should she remain in atrial fibrillation. From a cardiac standpoint, she appears stable for discharge home at this time with close outpatient followup. Thank you for this consultation. We will be happy to follow during her hospital course. Catracho Spencer MD
--- NOTE | 2018-12-04 13:37 | CARD ---
APPROVED REPORT Date of service: 12/04/2018 EXAM: Two-dimensional and M-mode echocardiogram with Doppler and color Doppler. INDICATION Atrial Fibrillation 2D DIMENSIONS Left Atrium (2D)3.7 (1.6-4.0cm)IVSd1.0 (0.7-1.1cm) Aortic Root (2D)3.1 (2.0-3.7cm)LVDd3.9 (3.9-5.9cm) PWd1.1 (0.7-1.1cm)LVDs2.2 (2.5-4.0cm) FS (%) 42.5 %LVEF (%)74.2 (>50%) M-Mode DIMENSIONS Aortic Cusp Exc.1.70 (1.5-2.0cm) Aortic Valve AI P 1/2 [id number] Mitral Valve MV E Rqzbklbb835.0cm/s TDI Lateral E' Peak V10.60cm/sMedial E' Peak V6.63cm/sE/Lateral E'11.4 E/Medial E'18.3 Pulmonary Valve PV Peak Eubvpilf84.9cm/sPV Peak Grad.2mmHg Tricuspid Valve TR Peak [id number]/sRAP [id number] Peak Gr.19mmHg [id number] LEFT VENTRICLE The left ventricle is normal size. There is normal left ventricular wall thickness. The left ventricular function is normal. The left ventricular ejection fraction is within the normal range. There is normal LV segmental wall motion. RIGHT VENTRICLE The right ventricle is normal size. The right ventricular systolic function is normal. ATRIA The left atrium size is normal. The right atrium size is normal. The interatrial septum is intact with no evidence for an atrial septal defect. AORTIC VALVE The aortic valve is normal in structure. There is trace aortic regurgitation. There is no aortic valvular stenosis. MITRAL VALVE The mitral valve is normal in structure. Mitral regurgitation is mild. TRICUSPID VALVE The tricuspid valve is normal in structure. There is mild tricuspid regurgitation. PULMONIC VALVE The pulmonary valve is normal in structure. GREAT VESSELS The aortic root is normal in size. The IVC is normal in size and collapses >50% with inspiration. PERICARDIAL EFFUSION There is no pleural effusion. There is no pericardial effusion. <Conclusion> Normal chamber size. Normal LV systolic function. Mild MR and TR.
--- NOTE | 2018-12-05 00:33 | DS ---
HOSPITAL COURSE: The patient was seen and examined. I do agree with the note of the internist medical doctor md. The patient was initially admitted to hospital because of atrial fibrillation. She had an echocardiogram that showed normal chamber size, normal LV systolic function. She was seen by Dr. Spencer and cleared to be discharged. The patient has been placed on Eliquis by Dr. Spencer he had called in a prescription to the Pharmacy, she is going to be discharged home today. She has Lipitor, she will continue that for her dyslipidemia. The patient had cardiac enzymes, which were negative. She will need to be on anticoagulation for stroke prevention, she has a rate that is controlled. The patient is currently on hypothyroidism medication of Synthroid. She has hypertension which is controlled. She is currently going to continue hydrochlorothiazide. Follow up with primary care doctor in 1-2 weeks, Dr. Dougherty and follow up with Dr. Spencer. Usman Gonzales MD
[2018-12-05] MEDS ORDERED: Levothyroxine 125 MCG TAB PO SCH (06:00)
[2018-12-05 06:22] VITALS: RESP 19; TEMP 97.2; O2SAT 95
[2018-12-05] MEDS: Metoprolol Succinate 50 mg XL Tab PO SCH (08:10)
[2018-12-05 08:11] VITALS: BP 120/78; PULSE 70
--- NOTE | 2018-12-05 08:40 | CP.PCM.DIS ---
<YaniraPat - Last Filed: 12/05/18 10:56> Provider - Provider Date of Admission: 12/03/18 18:40 Attending physician: Usman Gonzales MD Primary care physician: Avelino Dougherty MD Consults: 12/03/18 18:36 Consult [Physician Consult] Stat Comment: Consulting Provider: Catracho Spencer Consulting Physician: Catracho Spencer Reason for Consult: A fib Time Spent in preparation of Discharge (in minutes): 45 Diagnosis - Discharge Diagnosis (1) Atrial fibrillation with controlled ventricular response Status: Acute (2) Dyslipidemia Status: Chronic (3) Hypertension Status: Chronic (4) Hypothyroidism Status: Chronic Hospital Course - Lab Results Lab Results: Most Recent Lab Values WBC 6.8 10^3/uL (4.5-11.0) 12/03/18 17:08 RBC 5.12 10^6/uL (3.5-6.1) 12/03/18 17:08 Hgb 15.0 g/dL (12.0-16.0) 12/03/18 17:08 Hct 45.5 % (36.0-48.0) 12/03/18 17:08 MCV 88.9 fl (80.0-105.0) 12/03/18 17:08 MCH 29.3 pg (25.0-35.0) 12/03/18 17:08 MCHC 33.0 g/dl (31.0-37.0) 12/03/18 17:08 RDW 12.6 % (11.5-14.5) 12/03/18 17:08 Plt Count 195 10^3/uL (120.0-450.0) 12/03/18 17:08 MPV 11.2 fl (7.0-11.0) H 12/03/18 17:08 Neut % (Auto) 55.9 % (50.0-68.0) 12/03/18 17:08 Lymph % (Auto) 29.6 % (22.0-35.0) 12/03/18 17:08 Coffey % (Auto) 11.0 % (1.0-6.0) H 12/03/18 17:08 Eos % (Auto) 2.9 % (1.5-5.0) 12/03/18 17:08 Baso % (Auto) 0.6 % (0.0-3.0) 12/03/18 17:08 Lymph # (Auto) 2.0 (1.2-3.4) 12/03/18 17:08 Coffey # (Auto) 0.8 (0.1-0.6) H 12/03/18 17:08 Eos # (Auto) 0.2 (0.0-0.7) 12/03/18 17:08 Baso # (Auto) 0.04 K/mm3 (0.0-2.0) 12/03/18 17:08 Absolute Neuts (auto) 3.79 (1.4-6.5) 12/03/18 17:08 PT 12.1 SECONDS (9.4-12.5) 12/03/18 17:08 INR 1.09 12/03/18 17:08 APTT > 400.0 Seconds (26.9-38.3) H* 12/04/18 10:20 D-Dimer, Quantitative < 200 ng/mlDDU (0-243) 12/03/18 17:08 Sodium 140 mmol/L (132-148) 12/03/18 17:08 Potassium 3.9 mmol/L (3.6-5.0) 12/03/18 17:08 Chloride 103 mmol/L (98-107) 12/03/18 17:08 Carbon Dioxide 28 mmol/L (21-33) 12/03/18 17:08 Anion Gap 13 (10-20) 12/03/18 17:08 BUN 21 mg/dL (7-21) 12/03/18 17:08 Creatinine 0.6 mg/dl (0.7-1.2) L 12/03/18 17:08 Est GFR ( Amer) > 60 12/03/18 17:08 Est GFR (Non-Af Amer) > 60 12/03/18 17:08 Random Glucose 109 mg/dL (70-110) 12/03/18 17:08 Calcium 10.2 mg/dL (8.4-10.5) 12/03/18 17:08 Magnesium 1.8 mg/dL (1.7-2.2) 12/03/18 17:08 Total Bilirubin 0.8 mg/dL (0.2-1.3) 12/03/18 17:08 AST 23 U/L (14-36) 12/03/18 17:08 ALT < 6 U/L (7-56) L 12/03/18 17:08 Alkaline Phosphatase 58 U/L (38-126) 12/03/18 17:08 Troponin I < 0.01 ng/mL 12/04/18 10:20 NT-Pro-B Natriuret Pep 350 pg/mL (0-450) 12/03/18 17:08 Total Protein 7.6 g/dL (5.8-8.3) 12/03/18 17:08 Albumin 4.4 g/dL (3.0-4.8) 12/03/18 17:08 Globulin 3.2 gm/dL 12/03/18 17:08 Albumin/Globulin Ratio 1.4 (1.1-1.8) 12/03/18 17:08 TSH 3rd Generation 1.10 mIU/mL (0.46-4.68) 12/03/18 17:30 - Hospital Course Hospital Course: Patient is a 78 y/o female with PMHx of Bronchitis, sleep apnea on cpap, knee OA, hypothyroidism, hyperlipidemia, hypertension, and heart murmur presenting with shortness of breath for 3 days. Patient was found to have atrial fibrillation. Echo with normal LVEF, and mild MR and TR. Patient was cleared to be discharged last night, however it was too late for patient to go home. Thus patient is to be discharged home today on eliquis 5 mg bid, metoprolol 50 mg daily. Patient will resume her synthroid, valsartan/hydrochlorothiazide, Lipitor and follow up with Dr. Dougherty and Dr. Spencer as outpatient in 1-2 weeks. Diet: heart healthy, 2 gram sodium Activity: resume baseline activity - Date & Time of H&P Date of H&P: 12/04/18 Time of H&P: 08:20 Discharge Exam - Head Exam Head Exam: ATRAUMATIC, NORMAL INSPECTION, NORMOCEPHALIC - Eye Exam Eye Exam: EOMI, Normal appearance, PERRL Pupil Exam: NORMAL ACCOMODATION - ENT Exam ENT Exam: Mucous Membranes Moist - Neck Exam Neck exam: Normal Inspection - Respiratory Exam Respiratory Exam: Clear to PA & Lateral, NORMAL BREATHING PATTERN, UNREMARKABLE. absent: Prolonged Expiratory Phase, Rales, Rhonchi, Wheezes, Respiratory Distress, Stridor - Cardiovascular Exam Cardiovascular Exam: Irregular Rhythm, RRR, +S1, +S2. absent: Bradycardia, Tachycardia, Diastolic murmur, Gallop, REGULAR RHYTHM, JVD, Rubs, Systolic Murmur - GI/Abdominal Exam GI & Abdominal Exam: Normal Bowel Sounds, Unremarkable. absent: Distended, Firm, Guarding, Rebound, Rigid, Soft, Tenderness - Extremities Exam Extremities exam: normal inspection - Back Exam Back exam: NORMAL INSPECTION - Neurological Exam Neurological exam: Alert, Oriented x3, Reflexes Normal - Psychiatric Exam Psychiatric exam: Normal Affect, Normal Mood - Skin Skin Exam: Dry, Intact, Normal Color, Warm Discharge Plan - Discharge Medications Prescriptions: RX: Bacitracin OINT 1 applic TP DAILY 10 Days #1 tube RX: Apixaban [Eliquis] 5 mg PO BID 30 Days #60 tab RX: Metoprolol Succinate XL [Toprol XL] 50 mg PO BRK 30 Days #30 tab - Follow Up Plan Condition: STABLE Disposition: HOME/ ROUTINE Patient education suggested?: Yes Instructions: Atrial Fibrillation (DC), Going Home on Blood Thinners Additional Instructions: Please follow up with Dr. Spencer in 1-2 weeks Follow up with your primary care doctor in a week. Continue with all your home medications You are going home with 2 need medications, eliquis ( blood thinner) take twice a day, and metoprolol to be taking once a day. Please return if the symptoms returns or call 911. Referrals: Usman Gonzales MD [Staff Provider] - Avelino Dougherty MD [Primary Care Provider] - Catracho Spencer MD [Staff Provider] - <Usman Gonzales - Last Filed: 12/05/18 16:07> Provider - Provider Date of Admission: 12/03/18 18:40 Attending physician: Usman Gonzales MD Primary care physician: Avelino Dougherty MD Consults: 12/03/18 18:36 Consult [Physician Consult] Stat Comment: Consulting Provider: Catracho Spencer Consulting Physician: Catracho Spencer Reason for Consult: A fib Hospital Course - Lab Results Lab Results: Most Recent Lab Values WBC 6.8 10^3/uL (4.5-11.0) 12/03/18 17:08 RBC 5.12 10^6/uL (3.5-6.1) 12/03/18 17:08 Hgb 15.0 g/dL (12.0-16.0) 12/03/18 17:08 Hct 45.5 % (36.0-48.0) 12/03/18 17:08 MCV 88.9 fl (80.0-105.0) 12/03/18 17:08 MCH 29.3 pg (25.0-35.0) 12/03/18 17:08 MCHC 33.0 g/dl (31.0-37.0) 12/03/18 17:08 RDW 12.6 % (11.5-14.5) 12/03/18 17:08 Plt Count 195 10^3/uL (120.0-450.0) 12/03/18 17:08 MPV 11.2 fl (7.0-11.0) H 12/03/18 17:08 Neut % (Auto) 55.9 % (50.0-68.0) 12/03/18 17:08 Lymph % (Auto) 29.6 % (22.0-35.0) 12/03/18 17:08 Coffey % (Auto) 11.0 % (1.0-6.0) H 12/03/18 17:08 Eos % (Auto) 2.9 % (1.5-5.0) 12/03/18 17:08 Baso % (Auto) 0.6 % (0.0-3.0) 12/03/18 17:08 Lymph # (Auto) 2.0 (1.2-3.4) 12/03/18 17:08 Coffey # (Auto) 0.8 (0.1-0.6) H 12/03/18 17:08 Eos # (Auto) 0.2 (0.0-0.7) 12/03/18 17:08 Baso # (Auto) 0.04 K/mm3 (0.0-2.0) 12/03/18 17:08 Absolute Neuts (auto) 3.79 (1.4-6.5) 12/03/18 17:08 PT 12.1 SECONDS (9.4-12.5) 12/03/18 17:08 INR 1.09 12/03/18 17:08 APTT > 400.0 Seconds (26.9-38.3) H* 12/04/18 10:20 D-Dimer, Quantitative < 200 ng/mlDDU (0-243) 12/03/18 17:08 Sodium 140 mmol/L (132-148) 12/03/18 17:08 Potassium 3.9 mmol/L (3.6-5.0) 12/03/18 17:08 Chloride 103 mmol/L (98-107) 12/03/18 17:08 Carbon Dioxide 28 mmol/L (21-33) 12/03/18 17:08 Anion Gap 13 (10-20) 12/03/18 17:08 BUN 21 mg/dL (7-21) 12/03/18 17:08 Creatinine 0.6 mg/dl (0.7-1.2) L 12/03/18 17:08 Est GFR ( Amer) > 60 12/03/18 17:08 Est GFR (Non-Af Amer) > 60 12/03/18 17:08 Random Glucose 109 mg/dL (70-110) 12/03/18 17:08 Calcium 10.2 mg/dL (8.4-10.5) 12/03/18 17:08 Magnesium 1.8 mg/dL (1.7-2.2) 12/03/18 17:08 Total Bilirubin 0.8 mg/dL (0.2-1.3) 12/03/18 17:08 AST 23 U/L (14-36) 12/03/18 17:08 ALT < 6 U/L (7-56) L 12/03/18 17:08 Alkaline Phosphatase 58 U/L (38-126) 12/03/18 17:08 Troponin I < 0.01 ng/mL 12/04/18 10:20 NT-Pro-B Natriuret Pep 350 pg/mL (0-450) 12/03/18 17:08 Total Protein 7.6 g/dL (5.8-8.3) 12/03/18 17:08 Albumin 4.4 g/dL (3.0-4.8) 12/03/18 17:08 Globulin 3.2 gm/dL 12/03/18 17:08 Albumin/Globulin Ratio 1.4 (1.1-1.8) 12/03/18 17:08 TSH 3rd Generation 1.10 mIU/mL (0.46-4.68) 12/03/18 17:30 - Hospital Course Hospital Course: Pt is seen and examined by me. I have reviewed the note of the medical radiation tech and I agree with the note. I have discussed the asssessment and the plan with the resident. I have reviewed the medications and last labs.
--- NOTE | 2018-12-05 09:22 | PN ---
DATE: 12/05/2018 SUBJECTIVE: The patient is seen lying in bed, on telemetry. She remains in atrial fibrillation with controlled rate. CURRENT MEDICATIONS: Include Cozaar 100 mg daily, Eliquis 5 mg b.i.d., Lipitor 20 mg daily, hydrochlorothiazide 12.5 mg daily, metoprolol 50 mg daily, Synthroid 125 mcg daily. OBJECTIVE: GENERAL: She is an elderly woman who is comfortable at the present time. VITAL SIGNS: Blood pressure 110/72, pulse 68, respirations 16. She is afebrile. HEENT: No JVD. CHEST: Diffuse scattered rhonchi heard. HEART: Rhythm irregularly irregular with soft systolic murmur in the lower left sternal border. ABDOMEN: Soft, nontender with normoactive bowel sounds. EXTREMITIES: No edema. DIAGNOSTIC DATA: Echocardiogram revealed normal chamber size and normal LV systolic function and mild mitral and tricuspid regurgitation. IMPRESSION: 1. Recent onset atrial fibrillation, controlled rate at the present time, likely secondary to hypertensive heart disease. 2. History of hypertension. 3. Obstructive sleep apnea. RECOMMENDATIONS: From a cardiac standpoint, she is stable for discharge home at this time. She will be maintained on metoprolol 50 mg daily and Eliquis 5 mg b.i.d. The patient's followup will be arranged. Further discussions will be held whether to attempt rhythm control versus maintain rate control for her atrial fibrillation and outpatient stress test will be planned as well. Catracho Spencer MD
--- NOTE | 2018-12-05 22:15 | DS ---
HOSPITAL COURSE: The patient is seen and examined. I do agree with a note of the medical interpreter. The plan of care was discussed. The patient was seen by Dr. Spencer. She had an echocardiogram that was reviewed. The patient is going to be discharge home to follow up as an outpatient. She is currently comfortable. She denies any pain. Usman Gonzales MD
== END 2018-12-05 11:58 | disposition home or self-care (01) | DRG 310 ==
LOC: ED 16:43 → ERH 18:40 → 2RNO 20:44
PROVIDERS: ADMIT Internal Medicine Nephrology; ATTEND Internal Medicine Nephrology
DX: I48.91 Unspecified atrial fibrillation (principal); I11.9 Hypertensive heart disease without heart failure; E03.9 Hypothyroidism, unspecified; J44.9 Chronic obstructive pulmonary disease, unspecified; G47.33 Obstructive sleep apnea (adult) (pediatric); M17.0 Bilateral primary osteoarthritis of knee; E78.5 Hyperlipidemia, unspecified; Z90.710 Acquired absence of both cervix and uterus; Z87.891 Personal history of nicotine dependence; Z80.49 Family history of malignant neoplasm of other genital organs